=== PATIENT | male | born 1960 ===

== ENCOUNTER 2017-04-15 12:20 | Observation (INO) | payer MEDICAID ==
[2017-04-15] MEDS ORDERED: NS 1,000 ML IV ONE (13:14)
[2017-04-15] MEDS ORDERED: HYDROmorphONE/DILAUDID 1 MG/ML INJ IVP ONE (13:14)
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
[2017-04-15 13:41] LABS: PLATELET COUNT 416 10^3/uL (150-400)
[2017-04-15 13:49] LABS: INR 1.11 (0.83-1.16); PROTIME(PATIENT) 14.5 SEC (12.0-15.0)
[2017-04-15] MEDS ORDERED: cefTRIAXone 1 GM in STERILE WATER INJ 10 ML IV ONE (14:00)
[2017-04-15] MEDS ORDERED: cefTRIAXone 1 GM/DEXTROSE 1 GM/50 ML BAG IV ONE (14:08)
[2017-04-15] MEDS ORDERED: cefOXitin SODIUM 2 GM in STERILE WATER INJ 21 ML IV ONE (15:14)
[2017-04-15] MEDS ORDERED: LR 1,000 ML IV ONE (15:30)
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
--- NOTE | 2017-04-15 16:41 | PDANEPAE ---
ANE History of Present Illness 57 year old male w/ PMHx of chronic back pain presents for lap brigido. ANE Past Medical History - Cardiovascular History Hx Hypertension: Yes Hx Arrhythmias: No Hx Chest Pain: No Hx Coronary Artery / Peripheral Vascular Disease: No Hx CHF / Valvular Disease: No Hx Palpitations: No - Pulmonary History Hx COPD: No Hx Asthma/Reactive Airway Disease: No Hx Recent Upper Respiratory Infection: No Hx Oxygen in Use at Home: No Hx Sleep Apnea: No - Neurologic History Hx Cerebrovascular Accident: No Hx Seizures: No Hx Dementia: No - Endocrine History Hx Diabetes: No Hypothyroid: No Hyperthyroid: No Obesity: no - Renal History Hx Renal Disorders: No - Liver History Hx Hepatic Disorders: No - Neurological & Psychiatric Hx Hx Neurological and Psychiatric Disorders: No - Cancer History Hx Cancer: No - Congenital Disorder History Hx Congenital Disorders: No - GI History Hx Gastrointestinal Disorders: No - Surgical History Prior Surgeries: ABD AND BACK SX ANE Review of Systems Review of Systems: - Exercise capacity Exercise capacity: limited by disability METS (RN): 1 METS ANE Patient History - Allergies Allergies/Adverse Reactions: No Known Allergies Allergy (Verified 04/15/17 15:23) - Home Medications Home medications: home medication list seen and reviewed Home Medications: Atorvastatin Calcium 04/15/17 [Last Taken 04/15/17] Diazepam 04/15/17 [Last Taken 04/14/17] Gabapentin 04/15/17 [Last Taken 04/15/17] Lisinopril 04/15/17 [Last Taken 04/15/17] Ranitidine HCl 04/15/17 [Last Taken 04/14/17] Valium 04/15/17 [Last Taken 04/14/17] morphINE 04/15/17 [Last Taken 04/15/17] - NPO status NPO Status: no food or drink >8 hours NPO Since - Liquids (Date): 04/15/17 NPO Since - Liquids (Time): 08:00 NPO Since - Solids (Date): 04/15/17 NPO Since - Solids (Time): 08:00 - Anes Hx Anes Hx: no prior problems - Smoking Hx Smoking Status: Former smoker - Alcohol Use Alcohol Use: Sober - Family Anes Hx Family Anes Hx: neg - N/A ANE Labs/Vital Signs - Labs Result Diagrams: 04/15/17 13:30 04/15/17 13:30 - Vital Signs Vital Signs: reviewed preoperatively; see RN documention for details Blood Pressure: 126/88 Heart Rate: 92 Respiratory Rate: 16 O2 Sat (%): 96 Height: 175.26 cm Weight: 83.915 kg ANE Physical Exam - Airway Neck exam: FROM Mallampati Score: Class 2 Mouth exam: normal dental/mouth exam - Pulmonary Pulmonary: no respiratory distress - Cardiovascular Cardiovascular: regular rate and rhythym - ASA Status ASA Status: II ANE Anesthesia Plan Anesthesia Plan: general endotracheal anesthesia Total IV Anesthesia: No
[2017-04-15] MEDS ORDERED: BUPIVACAINE 0.5% 30 ML SDV ONE (16:45)
[2017-04-15] MEDS ORDERED: fentaNYL 100 MCG/2 ML INJ ONE ×2 (16:48→18:15)
[2017-04-15] MEDS ORDERED: ROCURONIUM 50 MG/5 ML VIAL ONE (16:48)
[2017-04-15] MEDS ORDERED: PROPOFOL 200 MG/20 ML VIAL ONE (16:48)
[2017-04-15] MEDS ORDERED: LIDOCAINE 2% 5 ML SDV ONE (16:48)
[2017-04-15] MEDS ORDERED: DEXAMETHASONE 4 MG/ML VIAL ONE (16:54)
[2017-04-15] MEDS ORDERED: ONDANSETRON 4 MG/2 ML VIAL ONE (16:54)
[2017-04-15] MEDS ORDERED: PHENYLEPHRINE HCL 100 MCG/ML SYR ONE (17:15)
[2017-04-15] MEDS ORDERED: SUGAMMADEX SODIUM 200 MG/2 ML VIAL IVP ONE (17:49)
[2017-04-15] MEDS ORDERED: epHEDrine SULFATE 10 MG/ML SYR IVP PRN (17:50)
[2017-04-15] MEDS ORDERED: ONDANSETRON 4 MG/2 ML VIAL IVP PRN ×2 (17:50→17:55)
[2017-04-15] MEDS ORDERED: LR 500 ML IV PRN (17:50)
[2017-04-15] MEDS ORDERED: HYDROCODONE/APAP 5/325 TAB PO PRN (17:50)
[2017-04-15] MEDS ORDERED: PHENYLEPHRINE HCL 100 MCG/ML SYR IVP PRN (17:50)
[2017-04-15] MEDS ORDERED: NALOXONE HCL 0.4 MG/ML INJ IVP PRN (17:50)
[2017-04-15] MEDS ORDERED: PROMETHAZINE HCL 25 MG/ML INJ IVP PRN (17:50)
[2017-04-15] MEDS ORDERED: ONDANSETRON DISINTEGRATING 4 MG TAB PO PRN (17:55)
--- NOTE | 2017-04-15 17:55 | POSTOPPROG ---
Post Op Note Date of Operation: 04/15/17 Surgeon: Portia Crow Lead Massage Therapist: yamileth Anesthesiologist: cindy Anesthesia: GET(General Endotracheal) Pre-op Diagnosis: appendicitis Post-op Diagnosis: same Indication: 57 yo with 15 mm appendix and fecalith Procedure: lap appy Findings: inflamed at the base Inf/Abcess present in the surg proc area at time of surgery?: No Specimen(s): appendix
[2017-04-15] MEDS ORDERED: HYDROmorphONE/DILAUDID 1 MG/ML INJ ONE (18:14)
[2017-04-15] MEDS: HYDROmorphONE/DILAUDID 1 MG/ML INJ IVP PRN ×3 (18:18→19:07)
[2017-04-15] MEDS: fentaNYL 100 MCG/2 ML INJ IVP PRN ×4 (18:18→19:07)
--- NOTE | 2017-04-15 18:22 | POSTANESTH ---
Post Anesthetic Evaluation Cardiovascular Status: Normal, Stable, Similar to Pre-Op Cond Respiratory Status: Normal, Stable, Similar to Pre-op Cond. Level of Consciousness/Mental Status: Can Participate in Eval, Alert and Oriented Pain Control: Adequate, Prn Tx Ordered Nausea/Vomiting Control: Adequate, Prn Tx Ordered Complications Possibly Related to Anesthesia: None Noted
--- NOTE | 2017-04-15 22:07 | GOP ---
[f rep st] OPERATIVE REPORT DATE OF OPERATION: 04/15/2017 SURGEON: Portia Crow MD AD TAKER: Bianca Santiago, MEJIA. ANESTHESIA: General. ANESTHESIOLOGIST: Narendra Hurst MD. PREOPERATIVE DIAGNOSIS: Appendicitis. POSTOPERATIVE DIAGNOSIS: Appendicitis. PROCEDURE PERFORMED: Laparoscopic appendectomy. FINDINGS: Midline adhesions. Appendix enlarged at the base. SPECIMENS: Appendix. ESTIMATED BLOOD LOSS: 5 cc. INDICATIONS: The patient is a 57-year-old man who presented to the emergency room with hematuria and a CT scan was obtained that showed appendix at 15 mm with 2 fecaliths. DESCRIPTION OF PROCEDURE: Patient was brought into the operating room, placed supine on the table, a nd general anesthesia was administered. His abdomen was prepped and draped in the usual sterile fash ion. Infiltrated all sites with 0.5% Marcaine prior to making incisions. I elevated his left sidewa ll and I inserted the Veress needle. It passed the hanging drop test, however he had high insufflati on pressures. I decided to do a cutdown. I dissected down through the adipose tissues, identified t he fascia. I elevated it. I divided it. I placed 2 UR 6 sutures at this site. I then was able to enter the abdominal cavity. There were no injuries noted. I placed a 10 mm trocar and insufflation performed to 15 mm. He had midline adhesions. I was able to come across inferiorly. I placed a 5 m m trocar in the right lower quadrant and a 5 mm trocar in the right upper quadrant. I identified his appendix. The base of the appendix was enlarged. I divided the mesoappendix with the Harmonic. I divided the base with an Endo-CHARLOTTE 45 white load. I placed the appendix in an EndoCatch bag and retri eved it via the 10 mm trocar. There were no injuries from entry. Fascia closed with 0 Vicryl. Skin closed with 4-0 Monocryl. Dermabond applied. He was awakened in the operating room, extubated, tra nsferred to PACU in stable condition. /[id number]/MODL
[2017-04-15] MEDS: SULFAMETHOX/TMP 800/160 MG 1 TAB PO SCH (22:51)
[2017-04-15] MEDS: HYDROCODONE/APAP 5/325 TAB PO PRN (22:52)
[2017-04-16 02:57] VITALS: RESP 12; O2SAT 95
[2017-04-16] MEDS: HYDROCODONE/APAP 5/325 TAB PO PRN ×3 (03:34→13:04)
[2017-04-16] MEDS: SULFAMETHOX/TMP 800/160 MG 1 TAB PO SCH (08:34)
[2017-04-16 08:55] VITALS: BP 122/83; PULSE 81; TEMP 97.4
--- NOTE | 2017-04-16 12:57 | PDIAF ---
- Diagnosis Diagnosis: appendicitis, uti - Medication Management Discharge Medications: Medications to Continue on Transfer Acetaminophen [Acetaminophen Extra Strength] 1,000 mg PO Q8 PRN 04/15/17 [Last Taken Unknown] Acetaminophen [Tylenol 325mg (*)] 650 mg PO Q4HRS PRN 04/15/17 [Last Taken Unknown] Atorvastatin Calcium [Lipitor 40 mg (*)] 80 mg PO 1800 04/15/17 [Last Taken Unknown] Diazepam [Valium 5 MG (*)] 5 mg PO BID 04/15/17 [Last Taken Unknown] Diazepam [Valium 5 MG (*)] 5 mg PO Q6 PRN 04/15/17 [Last Taken Unknown] Gabapentin [Neurontin 300 MG (*)] 600 mg PO TID 04/15/17 [Last Taken Unknown] Lisinopril/Hydrochlorothiazide [Zestoretic 20-25 mg Tablet] 1 each PO DAILY [Last Taken Unknown] Omeprazole 20 mg PO DAILY 04/15/17 [Last Taken Unknown] Polyethylene Glycol 3350 17 gm PO DAILY 04/15/17 [Last Taken Unknown] Ranitidine HCl 150 mg PO DAILY 04/15/17 [Last Taken Unknown] diphenhydrAMINE [Benadryl 25 MG (*)] 25 mg PO Q6 PRN 04/15/17 [Last Taken Unknown] morphINE IR [morphINE IR 15 mg (*)] 15 mg PO BID 04/15/17 [Last Taken Unknown] oxyCODONE IR [Oxycodone Ir (*)] 5 - 10 mg PO Q4 PRN 04/15/17 [Last Taken Unknown ] Sulfamethox/Tmp 800/160 mg [Bactrim DS] 1 ea PO BID 5 Days tab 04/16/17 [Last Taken Unknown] Discharge Medications: Refer to the Discharge Home Medication list for PRN reason. - Orders Services needed: Home Care, Registered Nurse, Certified [facility] Face to Face: I certify that this patient was under my care and that I had the required [id number] encounter meeting the encounter requirements on the discharge day. My findings support the fact that the patient is homebound as defined in Home Care Face to Face Continued: CMS Chapter 7 Medicare Benefits Manual 30.1.1 , The condition of the patient is such that there exists a normal inability to leave home and consequently, leaving home would require a considerable and taxing effort. Diet Recommendation: no restrictions on diet Diet Texture: Regular Texture Diet Activity/Weight Bearing Restrictions: no heavy lifting, pushing, pulling x 2 weeks - Follow Up Care Current Providers and Referrals: JOSEPH MCDONALD [Other] - As per Instructions Portia Crow MD [Medical Doctor] - follow up in 2 weeks Manpreet Kaur MD [Medical Doctor] -
--- NOTE | 2017-04-18 15:02 | ASDISCHSUM ---
Discharge Information Plan Status: Medically Cleared to Leave: Discharge Date:04/16/2017 03:52 PM CM D/C Disposition: ADT D/C Disposition:[facility] Facility Projected Discharge Date:04/16/2017 11:00 AM Transportation at D/C: Discharge Delay Reason: Follow-Up Date:04/16/2017 11:00 AM Discharge Slot: Final Diagnosis: Placement Information Referral Type:*Snf/SNF Referral ID:[id number] Provider Name:Fredy Degroot/[employer] Address 1:[address] [facility] [address] [facility] Phone Number: Address 2: Fax Number: Jeronimo:Fredy Selection Factors: State:[place] Patient Contact Information Contact Name:CYNTHIA Relationship:Angelinabeba Address: Work Phone: City: [facility] Phone: [facility] Code: Email: Financial Information Financial Class:Medicaid Primary Plan Desc:MEDICAID HEALTH FIRST CONTINUOUS PROCESS [employer] Primary Plan Number:[id number] Secondary Plan Desc: Secondary Plan Number: Assessment Information Case Management Discharge Plan Note Case Management Discharge Discharge Order Complete? Answers: Yes Patient to Obtain Answers: Other Notes: [place] [place] Medications Transportation Arranged Answers: Other Notes: [facility] Transport will Pick (Date 04/16/2017 03:30 PM & Time) Faxed Final Orders Answers: Yes Discharge Comments Notes: Patient being discharged back to [facility] for Rehab. Transport arranged by [facility]. CAYLA Osuna to call report Date Signed: 04/16/2017 03:13 PM Electronically Signed By:Ale Blackman RN Intervention Information
== END 2017-04-16 15:52 ==
LOC: F1N 19:31
PROVIDERS: ADMIT Surgery; ATTEND Surgery
PROC: 0DTJ4ZZ Resection of Appendix, Percutaneous Endoscopic Approach (ICD-10-PCS; principal; 2017-04-15 16:00)
DX: K35.80 Unspecified acute appendicitis (principal); N30.01 Acute cystitis with hematuria; E86.9 Volume depletion, unspecified; Z98.1 Arthrodesis status; G89.29 Other chronic pain; I10 Essential (primary) hypertension
CPT/HCPCS: 44970; 74176; 96374; 96375; 99285; G0378; 82947-QW; J0694; J0696; J1100; J1170; J2370; J2405; J2704; J3010